=== PATIENT | female | born 1950 | race Caucasian/White ===

== ENCOUNTER → 2020-07-17 | Day surgery (SDC) | payer MEDICARE ==
[~2020-07-17] MED LIST: ATORVASTATIN CA80 MG PO; GABAPENTIN300 MG PO; MELOXICAM15 MG PO; OXYBUTYNIN CHLO10 MG PO; PAROXETINE HCL30 MG PO; THERA-D50 MCG PO; VITAMIN B-121000 MC2 SL; VITAMIN D3125 MCG PO
== END | disposition home or self-care (01) ==
LOC: OR 06:00
DX: Z12.11 Encounter for screening for malignant neoplasm of colon (principal); E78.5 Hyperlipidemia, unspecified; G62.9 Polyneuropathy, unspecified; J44.9 Chronic obstructive pulmonary disease, unspecified; F32.9 Major depressive disorder, single episode, unspecified; E53.8 Deficiency of other specified B group vitamins; E55.9 Vitamin D deficiency, unspecified; F17.210 Nicotine dependence, cigarettes, uncomplicated; Z79.899 Other long term (current) drug therapy
CPT/HCPCS: J2704; J7120

== ENCOUNTER → 2020-07-18 | Outpatient (CLI) | payer MEDICARE, OTHER | LOC: KOH-I 07-08 10:30 → EDBD 07-08 10:30 → KOH-I 14:10 | DX: F17.210 Nicotine dependence, cigarettes, uncomplicated (principal); R91.1 Solitary pulmonary nodule | CPT/HCPCS: 71271 ==

== ENCOUNTER → 2020-07-22 | Outpatient (CLI) | payer MEDICARE | LOC: MRI 07:59 → EXRD 07:59 → MRI 09:00 | DX: Z13.820 Encounter for screening for osteoporosis (principal); R41.3 Other amnesia; Z78.0 Asymptomatic menopausal state; R94.02 Abnormal brain scan; M85.89 Other specified disorders of bone density and structure, multiple sites | CPT/HCPCS: 70551; 77080 ==